=== PATIENT | female | born 1980 | race Caucasian/White ===

== ENCOUNTER 2016-08-16 04:15 | Inpatient (IN) | payer OTHER ==
[2016-08-16] MEDS ORDERED: Nalbuphine 20 MG/1 ML Amp IVPUSH PRN (06:10)
[2016-08-16] MEDS ORDERED: Sodium Chloride 0.9% 10 ML Syringe FLUSH PRN (06:10)
[2016-08-16] MEDS ORDERED: Lactated Ringers 1,000 ML IV SCH (06:15)
[2016-08-16] MEDS ORDERED: Oxytocin/Lactated Ringers 10 UNIT/1,000 ML BAG IV SCH (06:15)
--- NOTE | 2016-08-16 07:15 | HP ---
DATE OF ADMISSION: 08/16/2016 ADMISSION DIAGNOSIS: A 40 and 1/7th-week intrauterine , spontaneous rupture of membranes, early labor. HISTORY OF PRESENT ILLNESS: The patient is a 36-year-old, 5, para 3-0-1-3, white female, who was admitted after spontaneous rupture of membranes with resultant gross amount of amniotic fluid. She is olga approximately every 3-4 minutes, is comfortable. Her cervix is dilated to approximately 4 cm, 95% effaced, -2 station, mid position, soft. heart tones are reassuring. COURSE: The patient is a 5, para 3-0-1-3, TUCKER is 08/15/2016 as based upon a certain last menstrual period which started on 11/09/2015 and is supported by several ultrasounds specifically done on 02/09/2016, 04/01/2016 and 05/13/2016. The patient's previous menstrual history. Her LMP was certain occurred on 11/09/2015 x5 days. Frequency of her menses is 30-45 days. She was using no control at the time of conception. Previous pregnancies include a miscarriage that occurred on 02/23/2005 at 12 weeks' gestational age. A second delivered on 02/16/2006 at 37 weeks gestational age after 5 hours of labor. A 6-pound 2-ounce female born via spontaneous vaginal delivery at [facility] - baby's name is Pratima. Third child is a male infant born on 07/17/2008 at 39 weeks gestational age - 7 pounds 6 ounces - normal spontaneous vaginal delivery - this was a precipitous delivery at home. Child's name is Kareem. Fourth was a female infant born 07/08/2011 at 40 weeks' gestational age. 7 pounds 8 ounces born via spontaneous vaginal delivery at [facility]. Child's name is Sima. Her course was relatively unremarkable. Her first visit was on 02/09/2016. She had regular visits. Her vital signs remained stable throughout the care. Her fundal height growth was appropriate. Her weight gain was from approximately 124 pounds to 152 pounds for a 27-pound gain. The patient is group B strep negative. She plans to nurse. She declined genetic evaluation. She declined flu vaccination. LABORATORY DATA: LABORATORY TESTING: Her laboratory testing shows blood to be A positive with a negative antibody screen. Hemoglobin was 14.3 at first visit with platelets 373,000. Pap smear was normal. She is rubella immune. RPR is nonreactive. Urine culture done initially at her care was negative. Hepatitis B and HIV assays were negative. Chlamydia and gonorrhea assays both negative. Second trimester testing showed a hemoglobin of 11.8, at which time she was started on iron therapy in the form of ferrous sulfate 325 mg per day. Platelet count was 287,000. Her 1-hour GTT was 126. Group B strep screen was negative. ALLERGIES: Penicillins. CURRENT MEDICATIONS: 1. Multivitamin Women's oral tablet 1 daily. 2. Ferrous sulfate 325 mg tablets daily. PAST MEDICAL HISTORY: 1. Miscarriage in 2005, managed with dilation, suction and curettage. 2. Vaginal delivery x3. PAST SURGICAL HISTORY: 1. [place] tooth extraction in 2000. 2. Hernia repair in 2012. FAMILY HISTORY: Mother is alive and well as is father. She has 2 brothers and 1 sister. They are all alive and well. Maternal grandmother secondary to esophageal and stomach cancer. Maternal grandfather is alive with diabetes. Paternal grandmother is alive with hypertension and hyperlipidemia. Paternal grandfather is from lung cancer with metastatic brain cancer. There are twins on the maternal side of family. SOCIAL HISTORY: The patient is . is Jeronimo Meléndez. 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 She does not use any significant amounts of alcohol, drugs, or tobacco. She lives in the [facility]. REVIEW OF SYSTEMS: SKIN: Negative. RESPIRATORY: No infectious symptoms, asthma or shortness of breath. CARDIOVASCULAR: No chest pain or exercise intolerance. BREASTS: Changes associated with - patient plans to nurse. GI : Normal with good appetite and weight gain. : Changes associated with only. MUSCULOSKELETAL: Occasional edema noted. No other changes of abnormal nature. NEUROLOGICAL: Negative. PHYSICAL EXAMINATION: VITAL SIGNS: Her blood pressure on last evaluation in clinic was 128/62, heart rate was 150, height was 5 feet 4 and pregravid weight was 133. GENERAL: The patient is a well-developed, well-nourished, pleasant female, stated age, in no acute distress. She is alert and oriented x3 and appears to be a good historian. SKIN: Warm and dry without lesion. The patient has somewhat of a issa complexion on her face. Occasional acne scar present. LUNGS: Clear with good breath sounds in all lung mendiola. CARDIOVASCULAR: Regular rate and rhythm without murmurs. BREAST: Deferred. This was done at the time of her first visit and was found to be normal. She plans to nurse. ABDOMEN: Protuberant with with fundal height of 39 cm. Baby is in a vertex presentation by Erwin maneuvers. : Cervix is 4 cm, 95% effaced, -2 station, mid position, soft, patient has gross rupture of membranes with resultant clear amniotic fluid. EXTREMITIES: No significant edema. No abnormalities noted. NEUROLOGICAL: Within normal limits. ASSESSMENT: 1. A 40 and 1/7th-week intrauterine , spontaneous rupture of membranes in early labor. 2. Group B strep screen negative. 3. The patient plans to nurse. 4. History of very rapid labors with 1 delivery at home. 5. The patient prefers natural childbirth and is not interested in epidural. 6. The patient declined flu vaccination and genetic screening during course. PLAN: 1. Anticipate normal spontaneous vaginal delivery. 2. Saline lock. 3. Intermittent monitoring. 4. Support nursing decision and nursing behavior. 5. Nubain p.r.n. for pain. MMODAL /[id number]
--- NOTE | 2016-08-16 07:18 | PCM.SN ---
- Free Text/Narrative Note: Esther was admitted this a.m. having ruptured membranes at approximately 0330 hrs on 08/16/2016. She is admitted in labor and delivery in active labor. She had grossly ruptured membranes with resultant clear fluid. Patient went rapidly to complete and precipitously delivered at 0700 hrs. Baby delivered in an WILBUR position. The baby is a female , Apgars of 8/9 , weight is 7 # 1.9 oz history (3230 grams) and was 21.5 inches long. Cord was clamped 2 cut and cord blood was obtained. The umbilical cord had 3 vessels. Perineum was intact and normal lacerations occurred. Placenta delivered intact in a Tellez fashion at 0706 hrs.. It appeared complete.Estimate blood loss was 100 mL. Condition: Good. Patient intends to nurse.
[2016-08-16] MEDS ORDERED: Witch Hazel Medicated Pads 100/Jar TOP PRN (07:32)
[2016-08-16] MEDS ORDERED: Acetaminophen 325 MG Tab PO PRN (07:32)
[2016-08-16] MEDS ORDERED: Docusate Sodium 100 MG Cap PO PRN (07:32)
[2016-08-16] MEDS ORDERED: Benzocaine/Menthol 20%-0.5% Spray 56 GM Canister TOP PRN (07:32)
[2016-08-16] MEDS ORDERED: Lanolin 100% Cream 7 GM Tube TOP PRN (07:32)
[2016-08-16] MEDS: Ibuprofen 600 MG Tab PO PRN ×3 (08:14→18:57)
[2016-08-16] MEDS: Prenatal Multivitamin with Calcium/Folic Acid/Iron Tab PO SCH (20:38)
--- NOTE | 2016-08-17 06:27 | PCM.DCSUM1 ---
Discharge Summary - Hospital Course Free Text/Narrative:: Esther was admitted this a.m. having ruptured membranes at approximately 0330 hrs on 08/16/2016. She is admitted in labor and delivery in active labor. She had grossly ruptured membranes with resultant clear fluid. Patient went rapidly to complete and precipitously delivered at 0700 hrs. Baby delivered in an WILBUR position. The baby is a female , Apgars of 8/9 , weight is 7 # 1.9 oz history (3230 grams) and was 21.5 inches long. Cord was clamped 2 cut and cord blood was obtained. The umbilical cord had 3 vessels. Perineum was intact and normal lacerations occurred. Placenta delivered intact in a Tellez fashion at 0706 hrs.. It appeared complete.Estimate blood loss was 100 mL. Condition: Good. Patient intends to nurse. she has done well. Her vital signs stable. Her follow-up CBC is within normal limits for the period. Patient desires discharge today. - Discharge Data Discharge Date: 08/17/16 Discharge Disposition: Home, Self-Care 01 Condition: Good - Patient Instructions Diet: Regular Diet as Tolerated (Nursing diet was increased calcium and calories as recommended.) Activity: As Tolerated (No intercourse or tampons until bleeding resolves) Driving: May Drive Today Showering/Bathing: May Shower (May take a bath) Notify Provider of: Fever, Increased Pain, Swelling and Redness, Nausea and/or Vomiting - Discharge Plan Home Medications: Home Meds Ibuprofen [IJD: Ibuprofen] 600 mg PO Q4H PRN #30 tablet 08/17/16 [Rx] Vit with Ca/FA/Iron [ Plus Iron] 1 each PO DAILY tablet [Rx] Referrals: Evelio Nina MD [Primary Care Provider] - [facility] - Discharge Summary/Plan Comment DC Time >30 min.: No Discharge Summary/Plan Comment: Discharge instructions: 1. Discharge home 2. Regular, high fiber, nursing diet was increased calcium and calories as directed. 3. Routine follow-up, activity and diet discussed in detail with patient 4. Precautions given concern increased pain, bleeding, temperature, signs/ symptoms of DVT/PE 5. Medications per home medication was printed, discussed with them given to the patient. 6. Return to clinic, Dr. Nina, 6 weeks, [facility]. Diagnosis: 40 week -delivered Condition: Good - Patient Data Vitals - Most Recent: Last Vital Signs Temp 36.9 C 08/17/16 04:04 Pulse 66 08/17/16 04:04 Resp 12 08/17/16 04:04 BP 126/66 08/17/16 04:04 Pulse Ox 97 08/17/16 04:04 Weight - Most Recent: 70.76 kg I&O - Last 24 hours: Intake & Output 08/16/16 08/16/16 08/17/16 14:59 22:59 06:59 Intake Total 2240 240 Balance 2240 240 Lab Results - Last 24 hrs: Laboratory Results - last 24 hr 08/16/16 08/16/16 08/17/16 Range/Units 05:08 05:08 05:55 WBC 12.32 H 14.95 H (3.98-10.04) K/mm3 RBC 4.37 3.81 L (3.98-5.22) M/mm3 Hgb 13.4 11.7 (11.2-15.7) gm/L Hct 39.3 34.7 (34.1-44.9) % MCV 89.9 91.1 (79.4-94.8) fl MCH 30.7 30.7 (25.6-32.2) pg MCHC 34.1 33.7 (32.2-35.5) g/dl RDW Std Deviation 43.2 43.7 (36.4-46.3) fL Plt Count 270 242 (182-369) K/mm3 MPV 10.3 10.0 (9.4-12.3) fl Neut % (Auto) 74.5 H (34.0-71.1) % Lymph % (Auto) 12.2 L (19.3-51.7) % [place] % (Auto) 11.9 (4.7-12.5) % Eos % (Auto) 0.6 L (0.7-5.8) Baso % (Auto) 0.2 (0.1-1.2) % Neut # (Auto) 9.18 H (1.56-6.13) K/mm3 Lymph # (Auto) 1.50 (1.18-3.74) K/mm3 [place] # (Auto) 1.46 H (0.24-0.36) K/mm3 Eos # (Auto) 0.08 (0.04-0.36) K/mm3 Baso # (Auto) 0.02 (0.01-0.08) K/mm3 Blood Type A POSITIVE Gel Antibody Screen Negative Med Orders - Current: Current Medications Acetaminophen (Tylenol) 650 mg PO Q4H PRN PRN Reason: mild pain or fever Benzocaine/Menthol (Dermoplast Pain Relief Shonto) 0 gm TOP ASDIRECTED PRN PRN Reason: Perineal Comfort Measure Docusate Sodium (Colace) 100 mg PO BID PRN PRN Reason: Constipation Emollient Ointment (Lansinoh Hpa) 0 gm TOP ASDIRECTED PRN PRN Reason: Sore Nipples Ibuprofen (Motrin) 600 mg PO Q4H PRN PRN Reason: Mild pain or fever Last Admin: 08/16/16 18:57 Dose: 600 mg Prenat Multivit/Case Folder/Iron/Folic Ac ( Plus Iron) 1 each PO DAILY [facility] Last Admin: 08/16/16 20:38 Dose: Not Given Witch Magui (Tucks) 1 pad TOP ASDIRECTED PRN PRN Reason: Hemorrhoid pain Discontinued Medications Lactated Ringer's (Ringers, Lactated) 1,000 mls @ 100 mls/hr IV ASDIRECTED [facility] Last Admin: 08/16/16 05:55 Dose: 100 mls/hr Oxytocin/Lactated Ringer's (Pitocin In Lr 10 Units/1,000 Ml) 10 unit in 1,000 mls @ 500 mls/hr IV TITRATE [facility] PRN Reason: Protocol Last Admin: 08/16/16 07:05 Dose: 500 mls/hr, 500 mls/hr Nalbuphine HCl (Nubain) 10 mg IVPUSH Q2H PRN PRN Reason: Pain (moderate 4-6) Sodium Chloride (Saline Flush) 10 ml FLUSH ASDIRECTED PRN PRN Reason: Keep Vein Open *Q Meaningful Use (DIS) - VTE *Q VTE Criteria *Q: - Stroke *Q Stroke Criteria *Q: - AMI *Q AMI Criteria *Q:
[2016-08-17] MEDS: Prenatal Multivitamin with Calcium/Folic Acid/Iron Tab PO SCH (08:08)
[2016-08-17 08:47] VITALS: BP 119/72
== END 2016-08-17 10:15 | disposition home or self-care (01) | DRG 775 ==
LOC: JD.OB 04:15 → JD.OBCHECK 04:15 → JD.OB 06:10 → OBSVTOIN 07:00
PROVIDERS: ADMIT Obstetrics & Gynecology; ATTEND Obstetrics & Gynecology
PROC: 10E0XZZ Delivery of Products of Conception, External Approach (ICD-10-PCS; principal; 2016-08-16)
DX: O48.0 Post-term pregnancy (principal); O62.3 Precipitate labor; Z3A.40 40 weeks gestation of pregnancy; Z37.0 Single live birth
CPT/HCPCS: 36415; 81003; 85025; 85027; 86850; 86900; 86901; A9270-GY; J2590; J7120